=== PATIENT | female | born 1990 | race Caucasian/White ===

== ENCOUNTER 2017-11-24 22:11 | Emergency (ER) | payer BC ==
[~2017-11-24] VITALS: Ht 170.2 cm; Wt 67.1 kg
[2017-11-24] MEDS ORDERED: PROP50TA3 PO (22:34)
[2017-11-24] MEDS ORDERED: PROP40TA7 PO (22:34)
--- NOTE | 2017-11-24 22:47 | NUR ---
DR NASIM NIXON MD AT BEDSIDE FOR MSE.
[2017-11-24] MEDS ORDERED: TRAMADOL HCL 50 MG TABLET ONE (22:58)
--- NOTE | 2017-11-24 22:58 | NUR ---
Patient discharged to home in stable conditon. Written and verbal after care instructions given. Patient verbalizes understanding of instructions. Pt ambulated from ER w/ steady gait. No distress noted. Pt stated she will follow up with her PCP. Pt took all personal belongings.
[2017-11-24 23:00] VITALS: BP 118/78
[2017-11-24] MEDS ORDERED: LIDOCAINE 2% (UROJET) 10 ML JELLY MM ONE (23:00)
[2017-11-24] MEDS ORDERED: TRAMADOL HCL 50 MG TABLET PO ONE (23:00)
== END 2017-11-24 23:01 | disposition home or self-care (01) ==
LOC: ER 22:13
DX: M25.512 Pain in left shoulder (principal); F17.200 Nicotine dependence, unspecified, uncomplicated; F12.10 Cannabis abuse, uncomplicated; Z90.89 Acquired absence of other organs; Z88.0 Allergy status to penicillin; Z88.5 Allergy status to narcotic agent; Z79.899 Other long term (current) drug therapy
CPT/HCPCS: A4663

== ENCOUNTER 2017-12-20 15:37 | Emergency (ER) | payer MEDICAID, OTHER ==
[~2017-12-20] VITALS: Ht 170.2 cm; Wt 68.0 kg
[~2017-12-20 15:37] MED LIST: PROP40TA7 PO; PROP50TA3 PO
--- NOTE | 2017-12-20 16:25 | NUR ---
Dr. Roach here to see pt for MSE.
[2017-12-20] MEDS ORDERED: KETOROLAC TROMETHAMINE 30 MG INJ IM ONE (16:30)
[2017-12-20] MEDS ORDERED: KETOROLAC TROMETHAMINE 30 MG INJ ONE (16:39)
--- NOTE | 2017-12-20 17:11 | NUR ---
Patient discharged to home in stable conditon. Written and verbal after care instructions given. Patient verbalizes understanding of instructions.
== END 2017-12-20 17:12 | disposition home or self-care (01) ==
LOC: ER 15:39
DX: S19.9XXA Unspecified injury of neck, initial encounter (principal); S39.92XA Unspecified injury of lower back, initial encounter; F17.200 Nicotine dependence, unspecified, uncomplicated; F12.10 Cannabis abuse, uncomplicated; W51.XXXA Accidental striking against or bumped into by another person, initial encounter; Y93.89 Activity, other specified; Y92.89 Other specified places as the place of occurrence of the external cause; Y99.8 Other external cause status
CPT/HCPCS: 72040; 72072; 96372; 99284; A4663; J1885

== ENCOUNTER 2018-02-23 18:35 | Emergency (ER) | payer OTHER ==
[~2018-02-23] VITALS: Ht 170.2 cm; Wt 68.0 kg
--- NOTE | 2018-02-23 19:49 | NUR ---
Patient discharged to home in stable conditon. Written and verbal after care instructions given. Patient verbalizes understanding of instructions. Splint with thumb spica applied to right extremity. CMS wnl. All belongings with pt. VSS. NAD noted.
[2018-02-23 21:43] VITALS: BP 134/72
== END 2018-02-23 21:47 | disposition home or self-care (01) ==
LOC: ER 18:37
DX: G89.11 Acute pain due to trauma (principal); M25.531 Pain in right wrist; F17.200 Nicotine dependence, unspecified, uncomplicated; F12.10 Cannabis abuse, uncomplicated; Z88.0 Allergy status to penicillin; Z88.5 Allergy status to narcotic agent; W10.9XXA Fall (on) (from) unspecified stairs and steps, initial encounter; Y93.89 Activity, other specified; Y92.89 Other specified places as the place of occurrence of the external cause; Y99.8 Other external cause status
CPT/HCPCS: 73110; 73130; A4663

== ENCOUNTER 2018-08-26 23:19 | Emergency (ER) | payer BC, MEDICAID ==
[~2018-08-26] VITALS: Ht 172.7 cm; Wt 63.5 kg
[~2018-08-26 23:19] MED LIST changes: -PROP40TA7 PO
[2018-08-26] MEDS ORDERED: CLINDAMYCIN HCL 300 MG CAPSULE (23:25)
--- NOTE | 2018-08-26 23:30 | NUR ---
Dr. Lamb at bedside for MSE.
[2018-08-26] MEDS ORDERED: ONDANSETRON 4 MG/2 ML VIAL ONE ×2 (23:42→23:56)
[2018-08-26] MEDS ORDERED: KETOROLAC TROMETHAMINE 30 MG INJ ONE (23:42)
[2018-08-26] MEDS ORDERED: IV NORMAL SALINE 1000 ML BAG IV ONE (23:45)
[2018-08-26] MEDS ORDERED: KETOROLAC TROMETHAMINE 15 MG INJ IV ONE (23:45)
[2018-08-26] MEDS ORDERED: ONDANSETRON 4 MG/2 ML VIAL IV ONE (23:45)
[2018-08-26 23:46] LABS: BASOPHILS % (AUTO) 0.1 % (0.0-2.0); EOSINOPHILS # (AUTO) 0.2 K/uL (0.0-0.7); EOSINOPHILS % (AUTO) 2.2 % (0.0-7.0); HEMOGLOBIN 13.2 g/dL (10.9-14.3); LYMPHOCYTES % (AUTO) 31.1 % (20.5-51.5); MEAN CORPUSCULAR HEMOGLOBIN 28.9 uug (24.7-32.8); MEAN CORPUSCULAR HGB CONC 34 g/dL (32.3-35.6); MONOCYTES # (AUTO) 0.5 K/uL (2.0-10.0); NEUTROPHILS % (AUTO) 61.6 % (38.5-71.5); PLATELET COUNT (AUTO) 158 K/uL (179-408); RED BLOOD CELL COUNT(AUTO) 4.59 MIL/uL (3.63-4.92); WHITE BLOOD COUNT (AUTO) 9.7 K/uL (3.8-11.8)
[2018-08-27] LABS: ALANINE AMINOTRANSFERASE 26 U/L (14-59); ALKALINE PHOSPHATASE 72 U/L (50-136); ASPARTATE AMINOTRANSFERASE 15 U/L (15-37); BILIRUBIN,DIRECT 0.3 mg/dL (0.0-0.2); BILIRUBIN,TOTAL 0.8 mg/dL (0.2-1.0); CARBON DIOXIDE 24 mmol/L (21-32); CHLORIDE 104 mmol/L (98-107); CREATININE 0.4 mg/dL (0.6-1.3); GLUCOSE 95 mg/dL (74-106); LIPASE 63 U/L (73-393); POTASSIUM 3.5 mmol/L (3.5-5.1); TOTAL PROTEIN, SERUM 6.7 g/dL (6.4-8.2); UREA NITROGEN, BLOOD 10 mg/dL (7-18)
[2018-08-27] MEDS ORDERED: FENTANYL CITRATE 100 MCG/2 ML AMPUL IV ONE
[2018-08-27] MEDS ORDERED: FENTANYL CITRATE 100 MCG/2 ML AMPUL ONE
[2018-08-27] MEDS ORDERED: ONDANSETRON 4 MG/2 ML VIAL ONE (00:37)
[2018-08-27] MEDS ORDERED: IV NORMAL SALINE 1000 ML BAG IV ONE (00:45)
[2018-08-27] MEDS ORDERED: ONDANSETRON IV *ER 4 MG/2 ML VIAL IV ONE ×2 (00:45)
[2018-08-27] MEDS ORDERED: HYDROMORPHONE 1 MG/1 ML DISP.SYRIN IV ONE (00:45)
[2018-08-27] MEDS ORDERED: METOCLOPRAMIDE HCL 10 MG/2 ML VIAL IV ONE (00:45)
[2018-08-27] MEDS ORDERED: HYDROMORPHONE 1 MG/1 ML DISP.SYRIN ONE (00:48)
[2018-08-27] MEDS ORDERED: METOCLOPRAMIDE HCL 10 MG/2 ML VIAL ONE (00:48)
--- NOTE | 2018-08-27 01:44 | NUR ---
Patient discharged to home in stable conditon. Written and verbal after care instructions given. Patient verbalizes understanding of instructions. IV site discontinued. Pt ambulated out of ER with steady gait, no acute signs of distress, VSS, all belongings taken, to be driven home via private vehicle by family.
[2018-08-27 01:45] VITALS: BP 164/92
== END 2018-08-27 01:46 | disposition home or self-care (01) ==
LOC: ER 23:22
DX: K52.9 Noninfective gastroenteritis and colitis, unspecified (principal); F17.200 Nicotine dependence, unspecified, uncomplicated; F12.10 Cannabis abuse, uncomplicated; Z88.0 Allergy status to penicillin; Z88.5 Allergy status to narcotic agent; Z79.2 Long term (current) use of antibiotics; Z79.899 Other long term (current) drug therapy
CPT/HCPCS: 36415; 80048; 80076; 83690; 84702; 85025; 96361; 96374; 96375; 96376; 99283; J1170; J1885; J2405 ×3; J2765; J3010; A4663; J7030

== ENCOUNTER 2021-04-28 19:20 | Emergency (ER) | payer BC, MEDICAID ==
[~2021-04-28] VITALS: Ht 172.7 cm; Wt 68.0 kg
[~2021-04-28 19:20] MED LIST changes: +CLINDAMYCIN HCL 300 MG CAPSULE
--- NOTE | 2021-04-28 19:45 | NUR ---
PT AMBULATED TO ER C/O ABD. PAIN SINCE 299 TODAY, NO SOB OR LABORED BREATHING, AFEBRILE. DENIES CP/PRESSURE. NO N/V/D.
--- NOTE | 2021-04-28 19:52 | NUR ---
DR. CANNON AT BEDSIDE, MSE IN PROGRESS.
[2021-04-28 19:57] LABS: *BILIRUBIN,URIN NEGATIVE (NEGATIVE); *CLARITY,URINE CLEAR (CLEAR); *COLOR,URINE YELLOW (YELLOW); *KETONES,URINE NEGATIVE (NEGATIVE); LEUKOCYTE ESTERASE ,URINE TRACE (NEGATIVE); NITRITE, URINE NEGATIVE (NEGATIVE); UGLUCOSE NEGATIVE (NEGATIVE)
[2021-04-28 19:59] LABS: *BLOOD, URINE TRACE (NEGATIVE)
[2021-04-28 20:00] LABS: *URINE HCG, QUAL NEGATIVE (NEGATIVE)
--- NOTE | 2021-04-28 20:02 | NUR ---
LAB AT BEDSIDE.
[2021-04-28 20:21] LABS: HEMATOCRIT 39.7 % (31.2-41.9); MEAN CORPUSCULAR HEMOGLOBIN 33.2 uug (24.7-32.8); MEAN CORPUSCULAR VOLUME 95.7 fL (75.5-95.3); PLATELET COUNT (AUTO) 218 K/uL (179-408)
[2021-04-28 20:26] LABS: RBC,URINE 0-3 /HPF (0-3)
[2021-04-28 20:27] LABS: BACTERIA,URINE NONE SEEN /HPF (NONE SEEN)
[2021-04-28 20:29] LABS: POTASSIUM 3.1 mmol/L (3.5-5.1)
[2021-04-28] MEDS ORDERED: HYDROMORPHONE 1 MG/1 ML DISP.SYRIN IV ONE (20:30)
[2021-04-28] MEDS ORDERED: IV NS 1000 ML 1,000 ML IV ONE (20:30)
[2021-04-28] MEDS ORDERED: ONDANSETRON 4 MG/2 ML VIAL IV ONE (20:30)
[2021-04-28 20:49] LABS: BILIRUBIN,DIRECT 0.3 mg/dL (0.0-0.2); BILIRUBIN,TOTAL 1.3 mg/dL (0.2-1.0); TOTAL PROTEIN, SERUM 7.5 g/dL (6.4-8.2)
[2021-04-28] MEDS ORDERED: ONDANSETRON 4 MG/2 ML VIAL ONE (21:14)
[2021-04-28] MEDS ORDERED: HYDROMORPHONE 1 MG/1 ML DISP.SYRIN ONE (21:15)
--- NOTE | 2021-04-28 21:25 | NUR ---
PT TAKEN TO CT.
[2021-04-28] MEDS ORDERED: IOHEXOL 300MG/ML 100 ML INFUS..BTL ONE (21:42)
[2021-04-28] MEDS ORDERED: IV NORMAL SALINE 250 ML IV ONE (21:42)
[2021-04-28] MEDS ORDERED: SWABABLE VALVE TRANSFER SET EA MC ONE (21:42)
--- NOTE | 2021-04-28 21:54 | NUR ---
PT RETURNED FROM CT.
--- NOTE | 2021-04-28 22:38 | NUR ---
CALLED [facility] FOR CT OF ABD/PELVIS TO BE DICTATED.
[2021-04-28] MEDS ORDERED: KETAMINE HCL 500 MG/10 ML INJ IV ONE (23:30)
--- NOTE | 2021-04-28 23:57 | NUR ---
US GONZALES AT BEDSIDE.
[2021-04-29] MEDS ORDERED: DOXYCYCLINE HYCLATE 100 MG TABLET PO ONE (00:45)
[2021-04-29] MEDS ORDERED: KETOROLAC TROMETHAMINE 30 MG INJ IVP ONE (00:45)
[2021-04-29] MEDS ORDERED: CEFTRIAXONE 500 MG VIAL IV ONE (00:45)
[2021-04-29] MEDS ORDERED: DOXYCYCLINE HYCLATE 100 MG TABLET ONE (00:46)
[2021-04-29] MEDS ORDERED: KETOROLAC TROMETHAMINE 30 MG INJ ONE (00:47)
[2021-04-29] MEDS ORDERED: CEFTRIAXONE 500 MG VIAL ONE (00:47)
[2021-04-29] MEDS ORDERED: IBUP800T54 PO (01:05)
[2021-04-29] MEDS ORDERED: METR500T PO (01:05)
[2021-04-29] MEDS ORDERED: DOXY-326 PO (01:05)
[2021-04-29] MEDS ORDERED: ACETAMINOPHEN ES 500 MG TABLET ONE (01:13)
[2021-04-29] MEDS ORDERED: ACETAMINOPHEN ES 500 MG TABLET PO ONE (01:15)
--- NOTE | 2021-04-29 01:47 | NUR ---
Patient discharged to home in stable condition. Written and verbal after care instructions given. Patient verbalizes understanding of instructions. Stressed follow up or return to ER for worsening s/s. No pain/discomfort upon discharge. No SOB or labored breathing. No ASE noted with [place] medications administered. Picked up by brother.
[2021-04-29 01:54] VITALS: BP 110/63
== END 2021-04-29 01:55 | disposition home or self-care (01) ==
LOC: ER 19:23
DX: N73.9 Female pelvic inflammatory disease, unspecified (principal); E05.00 Thyrotoxicosis with diffuse goiter without thyrotoxic crisis or storm; E06.3 Autoimmune thyroiditis; F17.200 Nicotine dependence, unspecified, uncomplicated; D72.829 Elevated white blood cell count, unspecified; E87.1 Hypo-osmolality and hyponatremia; E87.6 Hypokalemia; Z97.5 Presence of (intrauterine) contraceptive device; Z20.822 Contact with and (suspected) exposure to COVID-19; K42.9 Umbilical hernia without obstruction or gangrene
CPT/HCPCS: 36415; 74177; 76856; 80048; 80076; 81001; 83690; 84443; 84703; 85025; 87426; 87491; 96361; 96365; 96375; 99285; J0696; J1170; J1885; J2405; Q9967; A4663; A9150; J7030; J7050

== ENCOUNTER 2023-03-30 19:01 | Emergency (ER) | payer MEDICAID ==
[~2023-03-30] VITALS: Ht 172.7 cm; Wt 68.0 kg
[~2023-03-30 19:01] MED LIST changes: +DOXY-326 PO; +IBUP800T54 PO; +METR500T PO
[2023-03-30 19:12] VITALS: O2SAT 100
[2023-03-30] MEDS ORDERED: KETOROLAC TROMETHAMINE 30 MG INJ IM ONE (19:30)
[2023-03-30] MEDS ORDERED: HYDR-3972 PO (19:31)
[2023-03-30] MEDS ORDERED: NAPR-1192 PO (19:31)
[2023-03-30] MEDS ORDERED: KETOROLAC TROMETHAMINE 30 MG INJ ONE (19:44)
== END 2023-03-30 20:10 | disposition home or self-care (01) ==
LOC: ER 19:04
DX: M54.50 Low back pain, unspecified (principal); F17.210 Nicotine dependence, cigarettes, uncomplicated; Z79.2 Long term (current) use of antibiotics; Z79.899 Other long term (current) drug therapy
CPT/HCPCS: 99283; 96372; J1885; A4606; A4663

== ENCOUNTER 2023-09-07 14:00 | Emergency (ER) | payer MEDICAID ==
[~2023-09-07] VITALS: Ht 170.2 cm; Wt 63.5 kg
[~2023-09-07 14:00] MED LIST changes: +HYDR-3972 PO; +NAPR-1192 PO
[2023-09-07] MEDS ORDERED: HYDR10SY12 PO (14:28)
[2023-09-07] MEDS ORDERED: DOXY100T2 PO (14:28)
[2023-09-07 14:47] VITALS: BP 140/75; O2SAT 99
== END 2023-09-07 14:47 | disposition home or self-care (01) ==
LOC: ER 14:00
DX: L27.0 Generalized skin eruption due to drugs and medicaments taken internally (principal); E03.9 Hypothyroidism, unspecified; Z79.899 Other long term (current) drug therapy; Z88.5 Allergy status to narcotic agent
CPT/HCPCS: A4606; A4663

== ENCOUNTER 2024-06-22 09:05 | Emergency (ER) | payer MEDICAID ==
[~2024-06-22] VITALS: Ht 172.7 cm; Wt 68.0 kg
[~2024-06-22 09:05] MED LIST changes: +DOXY100T2 PO; +HYDR10SY12 PO
[2024-06-22 10:42] VITALS: BP 121/77; O2SAT 98
== END 2024-06-22 10:42 | disposition home or self-care (01) ==
LOC: ER 09:05
DX: M54.6 Pain in thoracic spine (principal); E05.00 Thyrotoxicosis with diffuse goiter without thyrotoxic crisis or storm; F12.90 Cannabis use, unspecified, uncomplicated; F17.200 Nicotine dependence, unspecified, uncomplicated; Z88.5 Allergy status to narcotic agent; V89.2XXA Person injured in unspecified motor-vehicle accident, traffic, initial encounter; Y93.89 Activity, other specified; Y92.410 Unspecified street and highway as the place of occurrence of the external cause; Y99.8 Other external cause status
CPT/HCPCS: 72072; A4606; A4663